=== PATIENT | female | born 1965 | race American Indian/Alaskan Native ===

== ENCOUNTER 2018-11-18 19:42 | Emergency (ER) | payer BC, MEDICAID ==
[2018-11-18] MEDS ORDERED: Sodium Chloride 0.9% 1,000 ML IV ONE (20:21)
[2018-11-18] MEDS ORDERED: Ondansetron 4 MG/2 ML SDV IVPUSH ONE (20:21)
[2018-11-18] MEDS ORDERED: Ketorolac 30 MG/ML SDV IVPUSH ONE (20:21)
--- NOTE | 2018-11-18 20:28 | EDM.PDOC ---
ED HPI GENERAL MEDICAL PROBLEM - General Chief Complaint: Abdominal Pain Stated Complaint: flank pain Time Seen by Provider: 11/18/18 20:25 Source of Information: Reports: Patient History Limitations: Reports: No Limitations - History of Present Illness INITIAL COMMENTS - FREE TEXT/NARRATIVE: Presents with worsening right flank pain x 2 weeks associated w/ nausea. No prior h/o gallstone, kidney stones or abdominal surgeries. Severity: Moderate right side flank pain Pain Score (Numeric/FACES): 7 - Related Data Allergies Allergy/AdvReac Type Severity Reaction Status Date / Time clindamycin Allergy Hives Verified 11/18/18 20:06 Home Meds: Home Meds ALPRAZolam [Alprazolam] 1 mg PO BID PRN 11/18/18 [History] Cetirizine [ZyrTEC] 10 mg PO DAILY 11/18/18 [History] Gabapentin [Neurontin] 800 mg PO TID 11/18/18 [History] Simvastatin [Zocor] 40 mg PO DAILY 11/18/18 [History] amLODIPine Besylate [Amlodipine Besylate] 20 mg PO DAILY 11/18/18 [History] metFORMIN HCl [Metformin HCl] 500 mg PO DAILY 11/18/18 [History] tiZANidine [Zanaflex] 4 mg PO DAILY 11/18/18 [History] Past Medical History Cardiovascular History: Reports: High Cholesterol, Hypertension Psychiatric History: Reports: Anxiety Endocrine/Metabolic History: Reports: Diabetes, Type II ED ROS GENERAL - Review of Systems Review Of Systems: ROS reveals no pertinent complaints other than HPI. ED EXAM, GI/ABD - Physical Exam Exam: See Below Exam Limited By: No Limitations General Appearance: Alert, WD/WN, No Apparent Distress Ears: Normal External Exam Nose: Normal Inspection Throat/Mouth: No Airway Compromise Head: Atraumatic, Normocephalic Neck: Normal Inspection Respiratory/Chest: No Respiratory Distress, Lungs Clear, Normal Breath Sounds Cardiovascular: Regular Rate, Rhythm, No Murmur GI/Abdominal Exam: Normal Bowel Sounds, Soft, No Distention, Tender (mild right mid abdominal tenderness). No: Guarding, Rebound Back Exam: Full Range of Motion, CVA Tenderness (R) Extremities: Normal Range of Motion Neurological: Alert, Normal Cognition, No Motor/Sensory Deficits Skin Exam: Warm, Dry, Intact Course - Vital Signs Last Recorded V/S: Last Vital Signs Temp 36.6 C 08/23/19 19:42 Pulse 75 11/18/18 19:42 Resp 18 11/18/18 19:42 BP 124/76 11/18/18 19:42 Pulse Ox 99 11/18/18 19:42 - Orders/Labs/Meds Orders: Active Orders 24 hr Category Date Time Status Abdomen Pelvis wo Cont [CT] Stat Exams 11/18/18 20:22 Taken Acetaminophen/HYDROcodone [How[place] 325-5 MG] Med 11/18/18 22:46 Once 1 tab PO ONETIME ONE Medication Orders Hydrocodone Bitart/Acetaminophen (Howells 325-5 Mg) 1 tab PO ONETIME ONE Stop: 11/18/18 22:47 Labs: Laboratory Tests 11/18/18 11/18/18 11/18/18 Range/Units 20:05 20:35 20:35 WBC 8.0 (4.5-12.0) X10-3/uL RBC 4.43 (3.23-5.20) x10(6)uL Hgb 13.7 (11.5-15.5) g/dL Hct 41.0 (30.0-51.3) % MCV 92.5 (80-96) fL MCH 31.0 (27.7-33.6) pg MCHC 33.5 (32.2-35.4) g/dL RDW 14.1 (11.5-15.5) % Plt Count 312 (125-369) X10(3)uL MPV 7.3 L (7.4-10.4) fL Neut % (Auto) 48.4 (46-82) % Lymph % (Auto) 36.9 (13-37) % [place] % (Auto) 6.6 (4-12) % Eos % (Auto) 7 H (1.0-5.0) % Baso % (Auto) 1 (0-2) % Neut # (Auto) 3.8 (1.6-8.3) # Lymph # (Auto) 3.0 (0.6-5.0) # [place] # (Auto) 0.5 (0.0-1.3) # Eos # (Auto) 0.6 (0.0-0.8) # Baso # (Auto) 0.1 (0.0-0.2) # Sodium 140 (135-145) mmol/L Potassium 3.6 (3.5-5.3) mmol/L Chloride 103 (100-110) mmol/L Carbon Dioxide 29 (21-32) mmol/L BUN 9 (7-18) mg/dL Creatinine 0.8 (0.55-1.02) mg/dL Est Cr Clr Drug Dosing 71.03 mL/min Estimated GFR (MDRD) > 60 (>60) BUN/Creatinine Ratio 11.3 (9-20) Glucose 123 H (80-116) mg/dL Calcium 8.6 (8.6-10.2) mg/dL Total Bilirubin 0.3 (0.1-1.3) mg/dL AST 17 (5-25) IU/L ALT 22 (12-36) U/L Alkaline Phosphatase 158 H (56-112) IU/L Total Protein 7.5 (6.0-8.0) g/dL Albumin 3.5 (3.5-5.2) g/dL Globulin 4.0 g/dL Albumin/Globulin Ratio 0.9 Amylase (25-115) U/L Urine Color Yellow (YELLOW) Urine Appearance Clear (CLEAR) Urine pH 7.5 H (5.0-6.5) Ur Specific [place] 1.010 (1.010-1.025) Urine Protein Negative (NEGATIVE) mg/dL Urine Glucose (UA) Normal (NORMAL) mg/dL Urine Ketones Negative (NEGATIVE) mg/dL Urine Occult Blood Negative (NEGATIVE) Urine Nitrite Negative (NEGATIVE) Urine Bilirubin Negative (NEGATIVE) Urine Urobilinogen Normal (NEGATIVE) mg/dL Ur Leukocyte Esterase Negative (NEGATIVE) Urine RBC 0-5 (0-5) Urine WBC 0-5 (0-5) Ur Epithelial Cells Occasional Urine Bacteria Rare H (NS) 11/18/18 Range/Units 20:35 WBC (4.5-12.0) X10-3/uL RBC (3.23-5.20) x10(6)uL Hgb (11.5-15.5) g/dL Hct (30.0-51.3) % MCV (80-96) fL MCH (27.7-33.6) pg MCHC (32.2-35.4) g/dL RDW (11.5-15.5) % Plt Count (125-369) X10(3)uL MPV (7.4-10.4) fL Neut % (Auto) (46-82) % Lymph % (Auto) (13-37) % [place] % (Auto) (4-12) % Eos % (Auto) (1.0-5.0) % Baso % (Auto) (0-2) % Neut # (Auto) (1.6-8.3) # Lymph # (Auto) (0.6-5.0) # [place] # (Auto) (0.0-1.3) # Eos # (Auto) (0.0-0.8) # Baso # (Auto) (0.0-0.2) # Sodium (135-145) mmol/L Potassium (3.5-5.3) mmol/L Chloride (100-110) mmol/L Carbon Dioxide (21-32) mmol/L BUN (7-18) mg/dL Creatinine (0.55-1.02) mg/dL Est Cr Clr Drug Dosing mL/min Estimated GFR (MDRD) (>60) BUN/Creatinine Ratio (9-20) Glucose (80-116) mg/dL Calcium (8.6-10.2) mg/dL Total Bilirubin (0.1-1.3) mg/dL AST (5-25) IU/L ALT (12-36) U/L Alkaline Phosphatase (56-112) IU/L Total Protein (6.0-8.0) g/dL Albumin (3.5-5.2) g/dL Globulin g/dL Albumin/Globulin Ratio Amylase 85 (25-115) U/L Urine Color (YELLOW) Urine Appearance (CLEAR) Urine pH (5.0-6.5) Ur Specific [place] (1.010-1.025) Urine Protein (NEGATIVE) mg/dL Urine Glucose (UA) (NORMAL) mg/dL Urine Ketones (NEGATIVE) mg/dL Urine Occult Blood (NEGATIVE) Urine Nitrite (NEGATIVE) Urine Bilirubin (NEGATIVE) Urine Urobilinogen (NEGATIVE) mg/dL Ur Leukocyte Esterase (NEGATIVE) Urine RBC (0-5) Urine WBC (0-5) Ur Epithelial Cells Urine Bacteria (NS) Meds: Medications Generic Name Dose Route Start Last Admin Trade Name Freq PRN Reason Stop Dose Admin Hydrocodone Bitart/Acetaminophen 1 tab 11/18/18 22:46 [place] 325-5 Mg PO 11/18/18 22:47 ONETIME ONE Discontinued Medications Generic Name Dose Route Start Last Admin Trade Name [place] PRN Reason Stop Dose Admin Hydromorphone HCl 0.5 mg 11/18/18 21:23 11/18/18 21:28 Dilaudid IVPUSH 11/18/18 21:24 0.5 mg ONETIME ONE Administration Hydromorphone HCl 0.5 mg 11/18/18 22:32 Dilaudid IVPUSH 11/18/18 22:33 ONETIME ONE Sodium Chloride 1,000 mls @ 999 mls/hr 11/18/18 20:21 11/18/18 20:33 Normal Saline IV 11/18/18 21:21 999 mls/hr .BOLUS ONE Administration Ketorolac Tromethamine 30 mg 11/18/18 20:21 11/18/18 20:33 Toradol IVPUSH 11/18/18 20:22 30 mg ONETIME ONE Administration Ondansetron HCl 4 mg 11/18/18 20:21 11/18/18 20:33 Zofran IVPUSH 11/18/18 20:22 4 mg ONETIME ONE Administration - Radiology Interpretation Free Text/Narrative:: CT Abd/Pelvis w/o contrast: Mild hepatomegaly of uncertain etiology, otherwise unremarkable. Departure - Departure Time of Disposition: 22:48 Disposition: Home, Self-Care 01 Condition: Good Clinical Impression: Abdominal pain Qualifiers: Abdominal location: right upper quadrant Qualified Code(s): R10.11 - Right upper quadrant pain - Discharge Information *PRESCRIPTION DRUG MONITORING PROGRAM REVIEWED*: Yes *COPY OF PRESCRIPTION DRUG MONITORING REPORT IN PATIENT PING: No Instructions: Abdominal Pain, Adult, [id number] Referrals: PCP,None [Primary Care Provider] - Forms: ED Department Discharge Additional Instructions: Follow up with your primary physician in 2-3 days. Return to the ER if symptoms worsen. - My Orders Last 24 Hours: My Active Orders 11/18/18 20:22 Abdomen Pelvis wo Cont [CT] Stat 11/18/18 22:46 Acetaminophen/HYDROcodone [[place] 325-5 MG] 1 tab PO ONETIME ONE - Assessment/Plan Last 24 Hours: My Active Orders 11/18/18 20:22 Abdomen Pelvis wo Cont [CT] Stat 11/18/18 22:46 Acetaminophen/HYDROcodone [[place] 325-5 MG] 1 tab PO ONETIME ONE
[2018-11-18] MEDS ORDERED: HYDROmorphone 2 MG/ML SDV IVPUSH ONE ×2 (21:23→22:32)
[2018-11-18] MEDS ORDERED: Acetaminophen/HYDROcodone 325-5 MG Tab PO ONE (22:46)
== END 2018-11-18 22:59 | disposition home or self-care (01) ==
LOC: FB.ED 19:42
DX: R10.11 Right upper quadrant pain (principal); E11.9 Type 2 diabetes mellitus without complications; I10 Essential (primary) hypertension; E78.00 Pure hypercholesterolemia, unspecified; F41.9 Anxiety disorder, unspecified; Z88.1 Allergy status to other antibiotic agents; Z79.84 Long term (current) use of oral hypoglycemic drugs
CPT/HCPCS: 36415; 74176; 80053; 81001; 82150; 85025; 96361; 96374; 96375; 99284; A9270; J1170; J1885; J2405; J7030